=== PATIENT | male | born 1985 | race Caucasian/White ===

== ENCOUNTER → 2022-06-22 12:36 | Outpatient (CLI) | payer BC, SELFPAY ==
--- NOTE | 2022-06-22 12:42 | XR_ITS ---
FINAL REPORT CLINICAL HISTORY: left hip x 3 days and low back pain x 5 days FINDINGS: LUMBAR SPINE AP and lateral views were obtained. There is no acute fracture or malalignment. Vertebrae are normal height. Prevertebral soft tissues are unremarkable. IMPRESSION: No acute bony abnormality. Reviewed, Interpreted and Dictated by Pio Yung III, MD Transcribed by Qi Saucedo Authenticated and [facility]
--- NOTE | 2022-06-22 12:42 | XR_ITS ---
FINAL REPORT CLINICAL HISTORY: left hip x 3days and low back pain x 5days FINDINGS: LEFT HIP 2 views of the left hip are obtained. There is no acute fracture or dislocation. Visualized joint spaces are normally aligned. There is no acute soft tissue abnormality. IMPRESSION: No acute bony abnormality. Reviewed, Interpreted and Dictated by Pio Yung III, MD Transcribed by Qi Saucedo Authenticated and [facility]
== END ==
LOC: RAD 12:38
PROVIDERS: PCP Nurse Practitioner; Visit Provider Nurse Practitioner
DX: M25.552 Pain in left hip (principal); M54.50 Low back pain, unspecified
CPT/HCPCS: 72110; 73502

== ENCOUNTER 2022-07-21 08:00 | Outpatient (RCR) | payer BC, SELFPAY ==
--- NOTE | 2022-06-29 16:12 | HMH.PTOPEV ---
PT Outpatient Evaluation Rehab PT Outpatient Evaluation Start: 06/29/22 15:00 Freq: Status: Active Protocol: Document 06/29/22 15:00 ALYSSA (Rec: 06/29/22 16:12 ALYSSA [id number]) E-signed By Christi Jackman, PT Outpatient Therapy Subjective History Subjective History Pt is a 36 y/o male that reports insidious onset of left anterior groin pain 2 weeks ago, denies trauma. Pt reports due to hip pain he seemed to be compensating then noticed onset of bilateral low back pain ~5 days later. Pt reports groin pain is only aggravated by performing stand <>sit transfer, hip flexion and laying on the left side at night. Pt reports low back pain is aggravated by bending forward and lifting. Pt reports he had hip xray and lumbar xray on 06/22 without acute findings. Pt reports he was prescribed a steroid and muscle relaxer which helped the back but not the hip. Pt denies popping or clicking of the hip but states the hip feels like it needs to pop. Pt denies paresthesia, balance deficits or falls. Pt reports history of patella dislocations/subluxations but no other previous LE or back pain/injuries. Pt denies other comorbidities. Occupation: Commercial Housekeeper for [employer] Core strength 4+/5 Chief Complaint Pain,Spasms Symptom Type Ache,Dull Symptoms Relieved By Rest/Positioning Symptoms Aggravated By Prone,Bending/Stooping, Physical Activity Prior Functional Limitations None Current Functional Limitations Dressing,Sleeping,Sitting, Recreation Activity,Bending/ Stooping Symptom Description Intermittent Level of pain today (0-10) 0 Pain scale - at its best (0-10) 0 Pain scale - at its worst (0-10) 5 Lumbopelvic Eval Posture Lumbar Spine Posture Standing Position Flattened A
== END 2022-07-21 08:05 | disposition home or self-care (01) ==
LOC: PT 08:00
PROVIDERS: PCP Nurse Practitioner; Visit Provider Nurse Practitioner
DX: M54.50 Low back pain, unspecified (principal); M25.552 Pain in left hip; M62.830 Muscle spasm of back
CPT/HCPCS: 97010; 97014; 97110; 97140; 97163; G0283

== ENCOUNTER → 2022-09-07 23:23 | Outpatient (CLI) | payer BC, SELFPAY ==
[2022-09-07 18:15] LABS: Basophils % 0.3 % (0.1-2.0); Eosinophils # 0.2 K/mm3 (0.0-0.4); Eosinophils % 2.8 % (0.1-12.0); Hematocrit 45.6 % (42.0-52.0); Hemoglobin 15.1 g/dL (14.1-18.0); Lymphocytes # 1.3 K/mm3 (0.7-4.5); Lymphocytes % 17.4 % (10-50); Mean Corpuscular Hemoglobin 29.9 pg (27.0-31.2); Mean Corpuscular Volume 90.5 fl (80-94); Monocytes # 0.6 K/mm3 (0.1-1.0); Monocytes % 7.3 % (1.7-9.3); Neutrophils # 5.6 K/mm3 (1.8-7.8); Neutrophils % 72.2 % (37.0-80.0); Platelet Count 222 K/mm3 (142-424); Red Blood Count 5.04 M/mm3 (4.60-6.20); Red Cell Distribution Width 13.1 % (11.5-17.5); White Blood Count 7.7 K/mm3 (4.8-10.8)
[2022-09-07 18:21] LABS: Alanine Aminotransferase 21 U/L (12-78); Albumin Level 4.3 g/dl (3.5-5.0); Albumin/Globulin Ratio 1.7 (1.1-1.8); Alkaline Phosphatase 112 U/L (38-126); Amylase 74 U/L (30-110); Anion Gap 6.3 mEq/L (5-15); Aspartate Amino Transferase 28 U/L (17-59); Bilirubin,Total 0.5 mg/dl (0.2-1.3); Blood Urea Nitrogen 12 mg/dl (9-20); Calcium 8.8 mg/dl (8.4-10.2); Carbon Dioxide 31 mmol/L (22.0-30.0); Chloride 104 mmol/L (98-107); Estimated Glomerular Filt Rate 75 ml/min (>60); GFR (African American) 91 ML/MIN (>60); Globulin 2.6 g/dL (1.3-3.2); Glucose 80 mg/dl (74-100); Lipase 44 U/L (23-300); Potassium 4.3 mmoL/L (3.5-5.1); Sodium 137 mmol/L (136-145); Total Protein,Serum 6.9 g/dl (6.3-8.2)
[2022-09-07 18:51] LABS: Thyroid Stimulating Hormone 1.79 uIU/mL (0.465-4.68)
== END ==
PROVIDERS: PCP Nurse Practitioner; Visit Provider Nurse Practitioner
DX: R10.13 Epigastric pain (principal); K21.9 Gastro-esophageal reflux disease without esophagitis
CPT/HCPCS: 80053; 82150; 83690; 84443; 85025

== ENCOUNTER → 2022-09-09 18:43 | Outpatient (CLI) | payer BC, SELFPAY ==
[2022-09-12 12:02] LABS: H. pylori Stool Ag, EIA Negative (Negative)
== END ==
PROVIDERS: PCP Nurse Practitioner; Visit Provider Nurse Practitioner
DX: R10.13 Epigastric pain (principal); K21.9 Gastro-esophageal reflux disease without esophagitis
CPT/HCPCS: 87338

== ENCOUNTER → 2022-09-16 13:44 | Outpatient (CLI) | payer BC, SELFPAY ==
[2022-09-16 18:37] LABS: Basophils % 0.3 % (0.1-2.0); Eosinophils % 0.4 % (0.1-12.0); Hematocrit 47.3 % (42.0-52.0); Hemoglobin 15.7 g/dL (14.1-18.0); Lymphocytes # 0.7 K/mm3 (0.7-4.5); Lymphocytes % 8.4 % (10-50); Mean Corpuscular HGB Conc 33.2 g/dL (31.8-35.4); Mean Corpuscular Hemoglobin 29.7 pg (27.0-31.2); Mean Corpuscular Volume 89.4 fl (80-94); Mean Platelet Volume 9.4 fl (7.4-10.4); Monocytes # 0.6 K/mm3 (0.1-1.0); Monocytes % 7.1 % (1.7-9.3); Neutrophils # 6.6 K/mm3 (1.8-7.8); Neutrophils % 83.7 % (37.0-80.0); Platelet Count 220 K/mm3 (142-424); White Blood Count 7.8 K/mm3 (4.8-10.8)
== END ==
PROVIDERS: PCP Family Medicine; Visit Provider Family Medicine
DX: R50.9 Fever, unspecified (principal)
CPT/HCPCS: 85025

== ENCOUNTER 2022-10-29 10:28 | Day surgery (SDC) | payer BC, SELFPAY ==
[2022-10-21 12:48] VITALS: BMI 22.3
[2022-10-29 11:11] VITALS: BP 117/77; PULSE 68; RESP 18; TEMP 36.5; O2SAT 100
--- NOTE | 2022-10-29 11:15 | P.PN_ITS ---
[facility] Disclaimer: The information contained in this section may have been updated after the patient was seen, as this information can be updated by other users. 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 Surgical History History of cholecystectomy Hx of eye surgery Family History Father Coronary artery disease Mother Cancer, Onset Age: 63 Social History Smoking Status: Never smoker alcohol intake: current substance use type: denies use current occupational status: employed Travel in the last 8 weeks: None household members: spouse, family and children housing: house marital status: education level: high school service: No current occupational exposures/hazards: No caffeine: Yes special beatriz needs: No do you feel safe at home: Yes victim of physical abuse: No victim of emotional abuse: No victim of sexual abuse: No would you like helpful sources: No [facility] Anesthesia Checklist Patient Identification Patient Identification: Arm Band and Verbal (Name & ) Structural Data Admitted From: Home Planned Operative Procedure/s: EGD Consent for Planned Operative Procedure(s) Verified: Yes NPO Status Verified Time NPO: 00:00 Airway Assessment C-Spine Mobility Assessed: Yes TMJ Mobility Assessed: Yes Dentition: Good Dentition Neurological Assessment Level of Consciousness: Awake Hx Seizures: No Numbness or tingling in extremities: No Anesthesia Plan Anesthesia Risk discussed: Yes Anesthesia Plan: Verified ASA Class: II Anesthesia Type: MAC
[2022-10-29 11:29] VITALS: O2SAT 100
--- NOTE | 2022-10-29 11:41 | HMH.SCOPE ---
Procedure: Date: 10/29/22 Patient Date of :: 1985 Procedure Performed:: Diagnostic EGD Indications:: Atypical chest pain, GERD Performing Provider:: Stephanie Matta MD Referring Provider:: Joleen Matta APRN Sedation:: Propofol Procedure:: The gastroscope was gently passed through the incisoral orifice into the oral cavity and under direct visualization the esophagus was intubated. The endoscope was passed down the esophagus, through the stomach, and into the duodenum. Color, texture, mucosa, and anatomy of the esophagus, stomach, and duodenum were carefully examined with the scope. Findings:: Oropharynx: normal Esophagus: normal EG Junction: intact at 40 cm Cardia: normal Fundus: normal Body: normal Antrum: normal Duodenal bulb: normal Duodenum (second and third portion): normal Impression: Normal EGD Recommendations:: Symptomatic therapy as clinically indicated for GERD Complications:: None Estimated blood obtained (mL): 0
[2022-10-29 11:42] VITALS: BP 115/70; PULSE 94; RESP 18; TEMP 36.3; O2SAT 99
[2022-10-29 11:52] VITALS: BP 115/70; PULSE 80; RESP 18; TEMP 36.3; O2SAT 98
[2022-10-29 12:12] VITALS: BP 119/77; PULSE 89; RESP 18; TEMP 36.3; O2SAT 98
--- NOTE | 2022-10-29 14:01 | SUR.PHASEII ---
called Brandee galan about appt sched 11/26 @ 230 w/ Joleen Maya TELEVISION SCRIPT WRITER [facility]
== END 2022-10-29 12:12 | disposition home or self-care (01) ==
PROVIDERS: PCP Family Medicine; Visit Provider Internal Medicine Gastroenterology
PROC: 0DJ08ZZ Inspection of Upper Intestinal Tract, Via Natural or Artificial Opening Endoscopic (ICD-10-PCS; CPT 43235; principal; 2022-10-29 11:30)
DX: K21.9 Gastro-esophageal reflux disease without esophagitis (principal); R07.89 Other chest pain
CPT/HCPCS: 43235